=== PATIENT | female | born 1990 | race Caucasian/White ===

== ENCOUNTER → 2018-05-01 14:19 | Outpatient (CLI) | payer OTHER, SELFPAY ==
[2018-05-01 15:03] LABS: Absolute Lymphocyte Count 1.51 X10^3/ul (0.83-4.51); Basophil# 0.01 X10^3/uL; Basophil% 0.1 % (0-1); Eosinophil# 0.12 X10^3/uL; Eosinophils% 1.2 % (0-5); Hematocrit 37.3 % (37-47); Hemoglobin 13.1 g/dl (12.0-15.0); Lymphocyte # 1.51 X10^3/ul (4.0); Lymphocyte % 14.5 % (19-41); Mean Corp Hgb Conc 35.1 g/gl (32-36); Mean Corpuscular Hgb 31.4 pg (27.0-32.0); Mean Corpuscular Volume 89.4 fL (81-99); Mean Platelet Vol. 11.2 fl (6.2-12.0); Monocyte# 0.71 X10^3/uL; Monocyte% 6.8 % (0-10); Neutrophil # 8.04 X10^3/uL (2.7-7.7); Neutrophil % 77.3 % (47-70); Platelet Count 237 K/mm3 (150-450); RBC Distribution Width CV 12.4 % (11.6-14.6); RBC Distribution Width SD 40.1 fl (35.1-43.9); Red Blood Count 4.17 M/mm3 (4.2-5.4); White Blood Count 10.4 K/mm3 (4.4-11.0)
[2018-05-01 15:04] LABS: POSITIVE DIFFERENTIAL NO; POSITIVE MORPHOLOGY NO
[2018-05-01 16:16] LABS: HIV - WCH Non-Reactive (Nonreactive); Rubella IgG 143.5 IU/mL
[2018-05-03 08:12] LABS: HEPATITIS B SURFACE AG Negative (Negative)
[2018-05-04 02:33] LABS: Rapid Plasmin Reagin (RPR) NONREACTIVE (NONREACTIVE)
== END ==
PROVIDERS: Family Provider Family Medicine; PCP Family Medicine; Referring Provider Obstetrics & Gynecology; Visit Provider Obstetrics & Gynecology
DX: Z34.01 Encounter for supervision of normal first pregnancy, first trimester (principal)
CPT/HCPCS: 36415; 85025; 86592; 86703; 86762; 86900; 87340

== ENCOUNTER → 2018-09-03 | Outpatient (CLI) | payer OTHER, SELFPAY ==
[2016-08-12 11:48] VITALS: BMI 23.1
[2018-09-03 11:48] LABS: Color, Urine Yellow (Yellow); Glucose, Dipstick Normal (Normal); Hematocrit 33.8 % (37-47); Hemoglobin 11.9 g/dl (12.0-15.0); Ketone-Dipstick Negative (Negative); Leukocyte Esterase-Dipstick 100 /ul (Negative); Mean Corp Hgb Conc 35.2 g/gl (32-36); Mean Corpuscular Hgb 32.7 pg (27.0-32.0); Mean Corpuscular Volume 92.9 fL (81-99); Mean Platelet Vol. 11.5 fl (6.2-12.0); Nitrite-Dipstick Negative (Negative); Occult Blood-Urine Negative /ul (Negative); Platelet Count 167 K/mm3 (150-450); Protein-Dipstick 15 mg/dl (Negative); RBC Distribution Width CV 13.2 % (11.6-14.6); Red Blood Count 3.64 M/mm3 (4.2-5.4); Urine Bilirubin Dipstick Negative (Negative); Urine Clarity Sl. Cloudy (Clear); Urine Urobilinogen 1 mg/dl (Normal); White Blood Count 10.5 K/mm3 (4.4-11.0)
[2018-09-03 11:54] LABS: Scan Indicated on CBC? Y/N NO
[2018-09-03 12:03] LABS: Glucose Challenge Gest 1H 50g 108 mg/dL (70-140)
== END | disposition home or self-care (01) ==
LOC: LAB 09:35
PROVIDERS: Family Provider Family Medicine; PCP Family Medicine; Referring Provider Obstetrics & Gynecology; Visit Provider Obstetrics & Gynecology
DX: Z34.90 Encounter for supervision of normal pregnancy, unspecified, unspecified trimester (principal); Z3A.27 27 weeks gestation of pregnancy
CPT/HCPCS: 36415; 81002; 82950; 85027

== ENCOUNTER → 2018-09-04 | Outpatient (CLI) | payer OTHER, SELFPAY ==
[2016-08-12 11:48] VITALS: BMI 23.1
== END | disposition home or self-care (01) ==
LOC: LAB 11:59
PROVIDERS: Family Provider Family Medicine; PCP Family Medicine; Referring Provider Obstetrics & Gynecology; Visit Provider Obstetrics & Gynecology
DX: O26.892 Other specified pregnancy related conditions, second trimester (principal); R82.90 Unspecified abnormal findings in urine; Z3A.00 Weeks of gestation of pregnancy not specified
CPT/HCPCS: 87086; 87088

== ENCOUNTER 2018-11-18 14:45 | Inpatient (IN) | payer OTHER, SELFPAY ==
[2018-10-31 08:10] VITALS: BMI 22.8
[2018-11-18 15:08] VITALS: BMI 27.9
[2018-11-18] MEDS: Lactated Ringers 1,000 ML 50 ML IV ×3 (15:46→20:35)
[2018-11-18 15:49] LABS: Absolute Lymphocyte Count 1.36 X10^3/ul (0.83-4.51); Absolute Neutrophil Count 5.2 X10^3/uL (2.0-7.7); Basophil# 0.01 X10^3/uL; Basophil% 0.1 % (0-1); Eosinophils% 1.4 % (0-5); Hematocrit 32.4 % (37-47); Hemoglobin 10.9 g/dl (12.0-15.0); Lymphocyte # 1.36 X10^3/ul (4.0); Lymphocyte % 19.2 % (19-41); Mean Corp Hgb Conc 33.6 g/gl (32-36); Mean Corpuscular Hgb 29.7 pg (27.0-32.0); Mean Corpuscular Volume 88.3 fL (81-99); Mean Platelet Vol. 11.7 fl (6.2-12.0); Monocyte# 0.39 X10^3/uL; Monocyte% 5.5 % (0-10); Neutrophil # 5.21 X10^3/uL (2.7-7.7); Neutrophil % 73.7 % (47-70); Platelet Count 150 K/mm3 (150-450); RBC Distribution Width CV 12.9 % (11.6-14.6); RBC Distribution Width SD 41.9 fl (35.1-43.9); Red Blood Count 3.67 M/mm3 (4.2-5.4); White Blood Count 7.1 K/mm3 (4.4-11.0)
[2018-11-18 15:50] LABS: POSITIVE COUNT NO; POSITIVE DIFFERENTIAL NO; POSITIVE MORPHOLOGY NO
--- NOTE | 2018-11-18 15:53 | PCM.HP.OB ---
- Problem List (1) 37 weeks gestation of Status: Acute (2) SROM (spontaneous rupture of membranes) Status: Acute History Date of Admission: 11/18/18 Final TY: 12/03/18 Final TY Source: US <20 weeks Gestational age: 37 Weeks and 6 Days History of this : This is a 28 year-old, G 1, P 0, at 37 weeks gestational age who presents with SROM for clear fluid. Starting to feel contractions. No other complaints at this time. Medical History: Medical History (Last Reviewed 11/14/18 @ 09:36 by Stefanie Sheppard) Environmental allergies Z91.09 and not yet delivered Z34.90 Surgical History: Surgical History (Last Reviewed 11/14/18 @ 09:36 by Stefanie Sheppard) History of bunionectomy Z98.890 Allergies Penicillins [PCN] Allergy (Verified 08/12/16 11:44) Hives Home Medications: Home Medications vitamin,calcium,vkcfjxfg-wevk-zkfpy acid tablet 1 tab PO DAILY 10/02/18 Smoking Status: Never smoker Number of Fetus(es): 1 Heart Tracin/mod esther/+accels/no decels TOCO Analysis: Irritability with occasional ctx's History Past Pregnancies: Past Pregnancies Delivery Date Name GA/Weeks Outcome Route Weight Gender Labor Length Anesthesia Delivery Location Provider FOB Labs: GBS positive, resistant to clinda 1 hr GTT 108 Hgb 11.9 UDS neg Hep B neg RPR NR RI HIV NR A positive GC/CT neg Expected Delivery Method: Spontaneous Vaginal Review of Systems Gynecological: Reports: - - +SROM and ctx's Physical Exam General: Alert, No apparent distress HEENT: Atraumatic Lungs: - - No increased resp effort Abdomen: Gravid Extremities:: No edema Neurological: Neuro grossly intact Estimated gestational size: Appropriate for gestational size Presentation: Cephalic Cervix Dilation (cm): 4 - Per RN Station: -2 Effacement (%): 70 Assessment/Plan All Active Problems (Last Reviewed 11/14/18 @ 09:36 by Stefanie Sheppard) 37 weeks gestation of (Acute) SROM (spontaneous rupture of membranes) (Acute) Segmental and somatic dysfunction of sacral region (Acute) Segmental and somatic dysfunction of pelvic region (Acute) Segmental and somatic dysfunction of lumbar region (Acute) Segmental dysfunction of thoracic region (Acute) This is a 28 year-old, G1, P0, at 37 weeks gestational age who presents with SROM. Cvx 4 cm dilated. - Admit for routine intrapartum care - GBS positive, PCN allergy, resistant to Clinda, will start Vanc - Will start pitocin for augmentation if needed - Epidural prn
[2018-11-18] MEDS: Vancomycin IV 1,000 MG/200 ML BAG 200 MG IV (16:37)
[2018-11-18] MEDS: 0.9% Saline Lock 10 ML Syringe IV (17:43)
[2018-11-18] MEDS: Ondansetron 4 MG/2 ML Vial IV (20:01)
[2018-11-18] MEDS: fentaNYL-bupivacaine (epidural) 100 ML BAG EPIDURAL (20:44)
[2018-11-19] MEDS: fentaNYL-bupivacaine (epidural) 100 ML BAG EPIDURAL (01:58)
[2018-11-19] MEDS: Lactated Ringers 1,000 ML 50 ML IV (02:29)
[2018-11-19] MEDS: Oxytocin 30 units/NS 500 ml 30 UNITS/500 ML IV.SOLN 334 UNITS IV (03:45)
--- NOTE | 2018-11-19 04:05 | PCM.OPRPT ---
Problem List (1) 37 weeks gestation of Status: Acute (2) SROM (spontaneous rupture of membranes) Status: Acute Report of Operation Date of Procedure: 11/19/18 Pre-Operative Diagnosis: 37w6d SROM, labor Post-Operative Diagnosis: As above Surgery/Procedure Performed:: Description of Surgical Findings:: Clear fluid. VFI in OA position. Normal appearing placenta with a 3 vessel cord Type of Anesthesia:: Epidural Special Medications: None Specimen's removed: Placenta Drains: None Estimated Blood Loss (mL): 300 Description of Procedure: Patient complete and pushing. Head delivered OA, followed by shoulders and body without any force or delay. VFI delivered atraumatically and placed on maternal abdomen. Cord was clamped and cut after 60 sec delay by FOB. Placenta delivered intact with fundal massage. Placenta was normal appearing with a 3 vessel cord. Uterus explored x 1. Fundus firm and bleeding hemostatic. Right 2nd degree tear repaired in usual fashion. Grafts/Implants Used: None - Complications None - Admit VTE Documentation VTE Present on Admission: No VTE Pharm Prophylaxis ordered?: No Vaginal Delivery Maternal Presentation: Active Labor, Spontaneous Rupture of Membranes Amniotic Membrane Rupture Type: Spontaneous Amniotic Fluid Description: Clear Final TY: 12/03/18 Gestational age: 38 Weeks and 0 Days Date of Procedure: 11/19/18 Surgery/ Procedure Performed: Spontaneous Vaginal Delivery Type of Anesthesia: Epidural Presentation: Vertex Placental Delivery Description: Expressed Cord Vessel Description: 3 Vessels Cord Entanglement: None A gender: Female (1 minute): 8 (5 minute): 9 Episiotomy Description: None Laceration: 2nd degree Medications given after delivery: IV Pitocin Complications: None
[2018-11-19] MEDS: Oxytocin 30 units/NS 500 ml 30 UNITS/500 ML IV.SOLN 167 UNITS IV (04:15)
[2018-11-19 05:55] VITALS: BP 113/55; PULSE 97; RESP 18; TEMP 36.7; O2SAT 97
[2018-11-19] MEDS: 0.9% Saline Lock 10 ML Syringe IV (05:55)
[2018-11-19 08:15] VITALS: BP 108/61; PULSE 107; RESP 18; TEMP 36.9; O2SAT 96
[2018-11-19] MEDS: Senna/Docusate Sodium 1 Tablet PO (08:23)
[2018-11-19] MEDS: Ibuprofen 600 MG Tablet PO ×3 (08:23→20:10)
[2018-11-19 11:45] VITALS: BP 107/65; PULSE 76; RESP 18; TEMP 36.2
[2018-11-19] MEDS: Acetaminophen 500 MG Tablet 1000 MG PO ×2 (12:03→21:45)
--- NOTE | 2018-11-19 12:25 | NURSING ---
Hathaway maintained due to labial edema. will reassess in 2-3 hours.
--- NOTE | 2018-11-19 12:30 | NURSING ---
de souza maintained. labial edema slightly lessened. will continue ice packs and anti inflammatories. reassess in 2-3 hours.
--- NOTE | 2018-11-19 12:32 | NURSING ---
de souza maintained at this time due to labial edema
[2018-11-19 16:00] VITALS: BP 100/62; PULSE 72; RESP 18; TEMP 36.6
[2018-11-19 20:15] VITALS: BP 109/67; PULSE 75; RESP 16; TEMP 36.6
[2018-11-19 23:40] VITALS: BP 111/59; PULSE 79; RESP 16; TEMP 36.2
[2018-11-20] MEDS: Ibuprofen 600 MG Tablet PO ×3 (02:36→19:13)
[2018-11-20 04:00] VITALS: BP 117/56; PULSE 72; RESP 16
[2018-11-20] MEDS: Acetaminophen 500 MG Tablet 1000 MG PO ×2 (07:32→23:11)
[2018-11-20 07:40] VITALS: BP 110/69; PULSE 70; RESP 16; TEMP 36.7; O2SAT 98
--- NOTE | 2018-11-20 08:17 | PCM.PN.OB ---
Patient Problems: Active and Suspected Problems (Last Reviewed 11/14/18 @ 09:36 by Stefanie Sheppard) 37 weeks gestation of (Acute) SROM (spontaneous rupture of membranes) (Acute) Subjective: No complaints - Physical Exam General: Alert, Oriented x3 Abdomen: Soft, Non Tender, Non-Distended - ff mid & below umb Extremities: No Calf Tenderness Vital Signs Temp Pulse Resp BP Pulse Ox 98.0 F 70 16 110/69 98 11/20/18 07:40 11/20/18 07:40 11/20/18 07:40 11/20/18 07:40 11/20/18 07:40 Oxygen Delivery Method Room Air Weight: 173 lb Body Mass Index (BMI) 27.9 Intake and Output for Last 24 Hours 11/18/18 11/19/18 11/20/18 23:59 23:59 23:59 Intake Total 1464 / 1464 1545 / 1545 Output Total 1950 / 1950 Balance 1464 / 1464 -405 / -405 Medical Necessity - Tobacco Use Smoking Status: Never smoker Assessment/Plan All Active Problems (Last Reviewed 11/14/18 @ 09:36 by Stefanie Sheppard) 37 weeks gestation of (Acute) SROM (spontaneous rupture of membranes) (Acute) Segmental and somatic dysfunction of sacral region (Acute) Segmental and somatic dysfunction of pelvic region (Acute) Segmental and somatic dysfunction of lumbar region (Acute) Segmental dysfunction of thoracic region (Acute) PPD#1 Routine care
[2018-11-20 12:00] VITALS: BP 111/67; PULSE 84; RESP 16; TEMP 36.7; O2SAT 98
[2018-11-20 20:47] VITALS: BP 113/63; PULSE 77; RESP 16; TEMP 36.9; O2SAT 97
[2018-11-21 02:47] VITALS: BP 113/69; PULSE 70; RESP 16; TEMP 36.9; O2SAT 98
--- NOTE | 2018-11-21 07:43 | PCM.PN.OB ---
Patient Problems: Active and Suspected Problems (Last Reviewed 11/14/18 @ 09:36 by Stefanie Sheppard) 37 weeks gestation of (Acute) SROM (spontaneous rupture of membranes) (Acute) Subjective: Pt doing well and has no complaints. Lochia normal. without complaints. Ambulating and voiding without difficulty. Rosy reg diet without N/V. - Physical Exam General: Alert, No apparent distress HEENT: Atraumatic Lungs: - - No increased resp effort Abdomen: Soft, Non Tender, - - FF@U-2 Extremities: No edema Skin: No rashes Neurological: Neuro grossly intact Psych/Mental Status: Normal Affect, Appropriate Vital Signs Temp Pulse Resp BP Pulse Ox 98.5 F 70 16 113/69 98 11/21/18 02:47 11/21/18 02:47 11/21/18 02:47 11/21/18 02:47 11/21/18 02:47 Oxygen Delivery Method Room Air Weight: 173 lb Body Mass Index (BMI) 27.9 Intake and Output for Last 24 Hours 11/19/18 11/20/18 11/21/18 23:59 23:59 23:59 Intake Total 1545 / 1545 Output Total 1950 / 1950 Balance -405 / -405 Medical Necessity - Tobacco Use Smoking Status: Never smoker Assessment/Plan All Active Problems (Last Reviewed 11/14/18 @ 09:36 by Stefanie Sheppard) 37 weeks gestation of (Acute) SROM (spontaneous rupture of membranes) (Acute) Segmental and somatic dysfunction of sacral region (Acute) Segmental and somatic dysfunction of pelvic region (Acute) Segmental and somatic dysfunction of lumbar region (Acute) Segmental dysfunction of thoracic region (Acute) PPD#2 s/p - Doing well and feels ready to go home - D/c home today
--- NOTE | 2018-11-21 07:44 | DCINST_ITS ---
Discharge Diet: No Restrictions Discharge Activity: Return to Normal Activity, May Shower, May Take a Tub Bath May resume sexual activity in: 6 weeks Weight Bearing Status: Full weight bearing Lifting Restrictions: None Call your doctor if you observe: Fever of 101 or Higher, Inability to urinate, Inability to have a bowel movement, Using more than one pad per hour, Shortness of breath, Dizziness, Fainting spells, Chest pain, Increased palpitations (irregular heartbeat), Calf discomfort, Uncontrolled pain Cleanse incision/area with: Soap & Water Instructions: After a Vaginal Additional Instructions: If you experience any of the following, contact your healthcare provider. * Bleeding that soaks a pad every hour for 2 hours * Fever 100.4 or higher * Unrelieved incision or abdominal pain * Swelling, redness, discharge or bleeding from your incision or episiotomy site * Your incision begins to separate * Problems urinating (including inability to urinate or burning while urinating). * Visual changes * Severe headache * Flu-like symptoms * Pain or redness in one of both of your breasts * Pain, warmth, tenderness or swelling in your legs, especially the calf area * Frequent nausea and vomiting * Symptoms of depression or anxiety If you experience any of the following, call 911 or go to the nearest Emergency Room. * Chest pain * Problems breathing * Seizure activity * Partial or complete paralysis of a body part, slurred speech, weakness or drooping of the face, or a sudden inability to walk or hold your balance Allergies/Adverse Reactions: Allergies Penicillins [PCN] Allergy (Verified 08/12/16 11:44) Hives Medications to take at Discharge vitamin,calcium,rypabfzf-udbr-lnojq acid tablet 1 tab PO DAILY 10/02/18 When: 6 week visit. You may also schedule a 1 week appointment if you desire Primary Care Physician: Aftab James MD [Primary Care Provider] - Test Results: Test results from this visit will be discussed in further detail at your follow- up appointment, if applicable. Proposed Discharge Date: 11/21/18
--- NOTE | 2018-11-21 07:44 | PCM.DCVAG ---
Discharge Diet: No Restrictions Discharge Activity: Return to Normal Activity, May Shower, May Take a Tub Bath May resume sexual activity in: 6 weeks Weight Bearing Status: Full weight bearing Lifting Restrictions: None Call your doctor if you observe: Fever of 101 or Higher, Inability to urinate, Inability to have a bowel movement, Using more than one pad per hour, Shortness of breath, Dizziness, Fainting spells, Chest pain, Increased palpitations (irregular heartbeat), Calf discomfort, Uncontrolled pain Cleanse incision/area with: Soap & Water Instructions: After a Vaginal Additional Instructions: If you experience any of the following, contact your healthcare provider. Bleeding that soaks a pad every hour for 2 hours Fever 100.4 or higher Unrelieved incision or abdominal pain Swelling, redness, discharge or bleeding from your incision or episiotomy site Your incision begins to separate Problems urinating (including inability to urinate or burning while urinating). Visual changes Severe headache Flu-like symptoms Pain or redness in one of both of your breasts Pain, warmth, tenderness or swelling in your legs, especially the calf area Frequent nausea and vomiting Symptoms of depression or anxiety If you experience any of the following, call 911 or go to the nearest Emergency Room. Chest pain Problems breathing Seizure activity Partial or complete paralysis of a body part, slurred speech, weakness or drooping of the face, or a sudden inability to walk or hold your balance Allergies/Adverse Reactions: Allergies Penicillins [PCN] Allergy (Verified 08/12/16 11:44) Hives Medications to take at Discharge vitamin,calcium,jhjccjrm-woyo-deimp acid tablet 1 tab PO DAILY 10/02/18 When: 6 week visit. You may also schedule a 1 week appointment if you desire Primary Care Physician: Aftab James MD [Primary Care Provider] - Test Results: Test results from this visit will be discussed in further detail at your follow-up appointment, if applicable. Proposed Discharge Date: 11/21/18
--- NOTE | 2018-11-21 08:10 | PN.OBGYN_ITS ---
Patient Problems: Active and Suspected Problems (Last Reviewed 11/14/18 @ 09:36 by Stefanie Sheppard) 37 weeks gestation of (Acute) SROM (spontaneous rupture of membranes) (Acute) Subjective: Pain well controlled. Average lochia. Not had a bowel movement yet. Breast- feeding is going well. - Physical Exam General: Alert, Cooperative, No apparent distress Vital Signs Temp Pulse Resp BP Pulse Ox 98.5 F 70 16 113/69 98 11/21/18 02:47 11/21/18 02:47 11/21/18 02:47 11/21/18 02:47 11/21/18 02:47 Oxygen Delivery Method Room Air Weight: 78.471 kg Body Mass Index (BMI) 27.9 Intake and Output for Last 24 Hours 11/19/18 11/20/18 11/21/18 23:59 23:59 23:59 Intake Total 1545 / 1545 Output Total 1950 / 1950 Balance -405 / -405 Medical Necessity - Tobacco Use Smoking Status: Never smoker Assessment/Plan All Active Problems (Last Reviewed 11/14/18 @ 09:36 by Stefanie Sheppard) 37 weeks gestation of (Acute) SROM (spontaneous rupture of membranes) (Acute) Segmental and somatic dysfunction of sacral region (Acute) Segmental and somatic dysfunction of pelvic region (Acute) Segmental and somatic dysfunction of lumbar region (Acute) Segmental dysfunction of thoracic region (Acute) day #2 status post spontaneous vaginal delivery. Patient and are doing well. Breast-feeding is going well. Discharged home with routine instructions. Patient declines need for any prescriptions.
[2018-11-21 08:56] VITALS: BP 116/76; PULSE 64; RESP 16; TEMP 36.4
[2018-11-21] MEDS: Ibuprofen 600 MG Tablet PO (09:11)
== END 2018-11-21 11:00 | disposition home or self-care (01) | DRG 806 ==
PROVIDERS: Admitting Provider Obstetrics & Gynecology; Family Provider Family Medicine; PCP Family Medicine; Visit Provider Obstetrics & Gynecology
DX: O60.14X0 Preterm labor third trimester with preterm delivery third trimester, not applicable or unspecified (principal); O98.82 Other maternal infectious and parasitic diseases complicating childbirth; Z37.0 Single live birth; B95.1 Streptococcus, group B, as the cause of diseases classified elsewhere; O70.9 Perineal laceration during delivery, unspecified; Z3A.37 37 weeks gestation of pregnancy
CPT/HCPCS: 59025; 59050; 85025; 86850; 86900; 99218; J7120; A4216; G0378; J2405

== ENCOUNTER 2019-02-08 09:15 | Outpatient (RCR) | payer OTHER, SELFPAY ==
[2016-08-12 11:48] VITALS: BMI 23.1
--- NOTE | 2018-10-01 16:42 | MASS.EVAL_ITS ---
Massage Therapy Evaluation: Initial Evaluation Date: 10/01/2018 SUBJECTIVE: Kiersten is a 27 year old female who was referred to the [facility] facility for a massotherapy evaluation by Dr. James with the diagnosis of back pain. Kiersten presents today with the symptoms of tension and pain in her neck, mid back and low back, patient is 31 weeks . Humberto reports having a upper back pain while trying to sleep. She also states that she if experiencing sciatic pain. OBJECTIVE: Upon observation Kiersten has some posture issues with her head and shoulders forward from the neutral position in sitting and standing. After examination and palpation I found Kiersten to have high muscle tension with tenderness and myofascial restrictions in her sub occipitals, levator scapulae, trapezius, rhomboids, scalenes, and thoracic paraspinals. Her QL?s, lumbar paraspinals, piriformis, glute medius and minimus all were very tight with fascial restr ictions, tender points and trigger points. The first treatment consisted of a one hour massage to her upper body with myofascial release, muscle stripping, trigger point compression techniques, and cervical manual traction. ASSESSMENT: I feel that Humberto is a good candidate for massotherapy at this time. She had a favorable response to the first treatment with reduction in her muscle aches, pain and tension. She also had improvement in her cervical flexibility and low back flexibility. PLAN: The plan of care was reviewed with the patient. The patient is to be seen on an as needed basis for a total of ten sessions with the recommendation of once every month for a one hour treatment. Melba Francis LMT
--- NOTE | 2019-05-06 19:19 | MASS.DISCH ---
Massage Therapy Discharge Summary: Discharge Date: 05/06/2019 Genny was seen for a massotherapy evaluation on 10/01/2018 with the diagnosis of back pain from work and . She was treated with four sessions of massage therapy consisting of moderate to deep pressure soft tissue techniques, myofascial release and trigger point compression to her cervical, thoracic, lower back, and upper extremities. Kiersten responded well to the therapy by reporting decreased tension and pain throughout her head, neck, shoulders, lower back and hips. Her goals for therapy were met throughout the treatment sessions. At this time this patient is being discharged from our care at [facility] facility.
== END 2019-02-08 19:00 | disposition home or self-care (01) ==
LOC: MASS 09:15
PROVIDERS: Family Provider Family Medicine; PCP Family Medicine; Visit Provider Family Medicine
DX: M54.9 Dorsalgia, unspecified (principal)
CPT/HCPCS: 97124

== ENCOUNTER 2020-04-28 23:00 | Inpatient (IN) | payer OTHER, SELFPAY ==
[2019-05-24 12:40] VITALS: BMI 27.9
[2020-04-28 22:42] VITALS: BP 118/74; PULSE 96; TEMP 37.1; O2SAT 97
[2020-04-28 22:59] VITALS: BMI 29.8
[2020-04-28] MEDS: Lactated Ringers 500 ML 999 ML IV (23:19)
[2020-04-28] MEDS: Cefazolin 2 GM in 0.9% Normal Saline 100 ML IV (23:19)
[2020-04-28 23:30] LABS: Absolute Lymphocyte Count 1.71 X10^3/uL (0.83-4.51); Absolute Neutrophil Count 10.6 X10^3/uL (2.0-7.7); Basophil# 0.02 X10^3/uL; Basophil% 0.2 % (0-1); Eosinophil# 0.07 X10^3/uL; Eosinophils% 0.5 % (0-5); Hematocrit 35.1 % (37-47); Lymphocyte # 1.71 X10^3/ul (4.0); Lymphocyte % 12.8 % (19-41); Mean Corp Hgb Conc 31.3 g/dL (32-36); Mean Corpuscular Hgb 26.8 pg (27.0-32.0); Mean Corpuscular Volume 85.6 fL (81-99); Mean Platelet Vol. 11.2 fl (6.2-12.0); NRBC Flagged by Analyzer 0 % (0-5); Neutrophil # 10.63 X10^3/uL (2.7-7.7); Neutrophil % 79.9 % (47-70); Platelet Count 213 K/mm3 (150-450); RBC Distribution Width CV 13.6 % (11.6-14.6); RBC Distribution Width SD 42.3 fl (35.1-43.9); White Blood Count 13.3 K/mm3 (4.4-11.0)
[2020-04-28] MEDS: Lactated Ringers 1,000 ML 50 ML IV (23:50)
[2020-04-29] VITALS (39 sets, daily range): BP systolic 102–131; BP diastolic 55–79; PULSE 82–109; RESP 16–18; TEMP 36.2–37.3; O2SAT 82–100
[2020-04-29] MEDS: fentaNYL-bupivacaine (epidural) 100 ML BAG EPIDURAL ×2 (02:25→07:19)
[2020-04-29] MEDS: Mag Hydrox/Al Hydrox/Simeth 30 ML UDC PO (04:15)
[2020-04-29] MEDS: Lactated Ringers 1,000 ML 200 ML IV (05:52)
--- NOTE | 2020-04-29 07:15 | PCM.HP.OB ---
History Date of Admission: 11/18/18 Final TY: 05/08/20 Final TY Source: US <20 weeks Gestational age: 38 Weeks and 5 Days History of this : This is a 29 year-old, G 2, P 1, at 38 weeks gestational age. Patient presents with contractions. She had a history of COVID-19 earlier in the . Had any gross vaginal bleeding or leaking of fluid. When she arrived to labor and delivery she was found to be in early labor. Medical History: Medical History (Last Reviewed 05/24/19 @ 12:40 by Ulisses Fong) Environmental allergies Z91.09 and not yet delivered Z34.90 Surgical History: Surgical History (Last Reviewed 05/24/19 @ 12:40 by Ulisses Fong) History of bunionectomy Z98.890 Allergies Penicillins [PCN] Allergy (Verified 04/28/20 23:07) Hives Home Medications: Home Medications prenat.vits,emely,mvo-jcff-dboge 1 tab PO DAILY 10/02/18 Smoking Status: Never smoker Alcohol: None Number of Fetus(es): 1 NST - FHR Rate Baby A Baseline: normal Variability:: Moderate History Past Pregnancies: Past Pregnancies Delivery Date Name GA/ Weeks Outcome Route Wt Infant Sex Labor Length Anesthesia Delivery Location Provider FOB Expected Delivery Method: Spontaneous Vaginal Review of Systems Constitutional: Denies: Chills, Fever Eyes: Denies: Blurred vision Cardiovascular: Denies: Chest Pain Respiratory: Denies: Cough, Shortness of Breath Genitourinary: Denies: Dysuria, Frequency Gynecological: Denies: Vaginal itching Neurological: Denies: Blurred vision, Change in Speech, Slurred speech, Confusion Hematologic/ Lymphatic: Denies: Anemia, Easy Bruising, Easy Bleeding, Hx of blood clot Physical Exam Vitals: Vital Signs Temp Pulse BP Pulse Ox 98.2 F 98 103/57 L 98 04/29/20 06:11 04/29/20 06:13 04/29/20 06:11 04/29/20 06:13 General: Alert, Cooperative, No apparent distress Cardiovascular: Regular rate Lungs: Normal air movement Abdomen: Soft, Non Tender, Non-Distended, Gravid, Appropriate for Gestational Age Extremities:: No edema Neurological: Cranial nerves II-XII grossly intact, Neuro grossly intact [employer]: Normal external genitalia Estimated gestational size: Appropriate for gestational size Presentation: Cephalic Assessment/Plan All Active Problems (Last Reviewed 05/24/19 @ 12:40 by Ulisses Fong) 37 weeks gestation of (Acute) SROM (spontaneous rupture of membranes) (Acute) Sinusitis, acute (Acute) Segmental and somatic dysfunction of sacral region (Acute) Segmental and somatic dysfunction of pelvic region (Acute) Segmental and somatic dysfunction of lumbar region (Acute) Segmental dysfunction of thoracic region (Acute) This is a 29 year-old, 2 para 1 at 38-5/7 weeks gestation with labor. Mated weight is less than 4000 g clinically and pelvis is clinically adequate to expect vaginal delivery. May have epidural as needed for pain control. Pitocin augmentation as needed. Group B strep prophylaxis initiated.
[2020-04-29] MEDS: Cefazolin 1 GM/50 ML BAG IV (07:18)
[2020-04-29] MEDS: Oxytocin 30 units/NS 500 ml 30 UNITS/500 ML IV.SOLN IV (07:28)
[2020-04-29] MEDS: Oxytocin 30 units/NS 500 ml 30 UNITS/500 ML IV.SOLN 334 UNITS IV (09:33)
--- NOTE | 2020-04-29 09:43 | PCM.OPRPT ---
Vaginal Delivery Maternal Presentation: Active Labor Amniotic Membrane Rupture Type: Artificial Amniotic Fluid Description: Clear Final TY: 05/08/20 Final TY Source: US <20 weeks Gestational age: 38 Weeks and 5 Days Date of Procedure: 04/29/20 Pre-Operative Diagnosis: labor Post-Operative Diagnosis: same Surgery/ Procedure Performed: Spontaneous Vaginal Delivery Type of Anesthesia: Epidural Description of Procedure: A vigorous female infant was delivered DIMITRY over first-degree perineal laceration. The remainder the was delivered with maternal pushing and gentle traction only in less than 15 seconds. The Pitocin infusion was initiated for active management of the third stage. The cord was clamped and cut after 1 minute. The infant was attended to by the waiting nursing staff. The placenta was delivered spontaneously and intact. The cervix and vagina were intact. First-degree perineal laceration was repaired with 3-0 Vicryl suture in a running standard fashion. Sponge and needle counts were correct. A vaginal sweep was completed by me. Delivery time 0931 patient started on ASA 325 mg daily due to h/o COVID 19 in Presentation: DIMITRY Placental Delivery Description: Spontaneous Placenta Disposition: [facility] Cord Vessel Description: 3 Vessels Cord Entanglement: None Drain: Hathaway to straight drain Estimated Blood Loss: 300 Infant A gender: Female - Ashley Episiotomy Description: None Laceration: 1st degree - perineal Medications given after delivery: IV Pitocin Complications: None
[2020-04-29] MEDS: Aspirin 325 MG Tablet PO (11:45)
[2020-04-29] MEDS: Ibuprofen 600 MG Tablet PO ×2 (11:49→19:44)
[2020-04-29] MEDS: 0.9% Saline Lock 10 ML Syringe IV (13:58)
[2020-04-29] MEDS: Acetaminophen 500 MG Tablet 1000 MG PO (22:20)
[2020-04-30 00:38] VITALS: BP 111/67; PULSE 90; RESP 18; TEMP 35.9
[2020-04-30] MEDS: Ibuprofen 600 MG Tablet PO ×2 (00:45→07:38)
[2020-04-30 04:30] VITALS: BP 109/62; PULSE 81; RESP 18; TEMP 36.2
[2020-04-30 04:32] VITALS: BP 109/62; PULSE 81; TEMP 36.2
[2020-04-30] MEDS: Aspirin 325 MG Tablet PO (07:38)
[2020-04-30 09:00] VITALS: BP 119/68; PULSE 77; RESP 16; TEMP 36.7
[2020-04-30 09:01] VITALS: BP 119/68; PULSE 77
[2020-04-30 09:03] VITALS: TEMP 36.7
--- NOTE | 2020-04-30 09:51 | PCM.PN.OB ---
Subjective: pain well controlled, average lochia - Physical Exam Vitals/I&O's: Vital Signs Temp Pulse Resp BP Pulse Ox 98.1 F 77 16 119/68 96 04/30/20 09:03 04/30/20 09:01 04/30/20 09:00 04/30/20 09:01 04/29/20 19:45 Oxygen Delivery Method Room Air Weight: 83.971 kg Body Mass Index (BMI) 29.8 Intake and Output for Last 24 Hours 04/28/20 04/29/20 04/30/20 23:59 23:59 23:59 Intake Total 500 / 500 2308.23 / 2308.23 Output Total 1350 / 1350 Balance 500 / 500 958.23 / 958.23 General: Alert, Cooperative, No apparent distress Current Medications Acetaminophen (Acetaminophen 500 Mg Tablet) 1,000 mg PO Q8H PRN PRN PRN Reason: Pain Score 1-3 Last Admin: 04/29/20 22:20 Dose: 1,000 mg Documented by: Aspirin (Aspirin 325 Mg Tablet) 325 mg PO DAILY@0800 IAN Last Admin: 04/30/20 07:38 Dose: 325 mg Documented by: Bisacodyl (Bisacodyl 10 Mg Suppository) 10 mg RECTAL UD PRN PRN Reason: If no BM Dibucaine (Dibucaine 30 Gm Tube) 1 applic TOPICAL TID PRN PRN; Protocol PRN Reason: Discomfort Hydrocortisone (Hydrocortisone 2.5% Crm) 1 applic TOPICAL TID PRN PRN; Protocol PRN Reason: Discomfort Ibuprofen (Ibuprofen 600 Mg Tablet) 600 mg PO Q6H PRN PRN PRN Reason: Pain Score 1-3 Last Admin: 04/30/20 07:38 Dose: 600 mg Documented by: Methylergonovine Maleate (Methylergonovine 0.2 Mg/Ml Ampul) 0.2 mg IM X1 PRN PRN Reason: Excess bleeding/uterine atony Ondansetron HCl (Ondansetron 4 Mg/2 Ml Vial) 4 mg IV Q4H PRN PRN PRN Reason: Nausea Prochlorperazine Edisylate (Prochlorperazine 10 Mg/2 Ml Vial) 10 mg IV Q6H PRN PRN PRN Reason: NAUSEA/VOMITING Senna/Docusate Sodium (Senna/Docusate Sodium 1 Tablet) 1 - 2 tablet PO DAILY PRN PRN PRN Reason: Constipation Simethicone (Simethicone 80 Mg Tablet) 80 mg PO PCHS PRN PRN Reason: Indigestion/Stomach pain Sodium Chloride (0.9% Saline Lock 10 Ml Syringe) 5 - 15 ml IV UD PRN PRN Reason: SALINE FLUSH Last Admin: 04/29/20 13:58 Dose: 10 ml Documented by: Medical Necessity - Tobacco Use Smoking Status: Never smoker Assessment/Plan All Active Problems (Last Reviewed 05/24/19 @ 12:40 by Ulisses Fong) 37 weeks gestation of (Acute) SROM (spontaneous rupture of membranes) (Acute) Sinusitis, acute (Acute) Segmental and somatic dysfunction of sacral region (Acute) Segmental and somatic dysfunction of pelvic region (Acute) Segmental and somatic dysfunction of lumbar region (Acute) Segmental dysfunction of thoracic region (Acute) PPD#2 doing well routine care and doing well d/c home today ASA prophylaxis for 4 weeks due to h/o recent COVID 19+
--- NOTE | 2020-04-30 09:53 | DCINST_ITS ---
Discharge Diet: No Restrictions Discharge Activity: Return to Normal Activity, May not drive while taking narcotic pain medications., May Shower May resume sexual activity in: 4-6 weeks Additional Activity Instructions:: Nothing in the vagina for 4-6 weeks. You may return to work/school in 6 weeks. Call your doctor if your incision/area has: Continuous Slow Oozing, Sudden Increased Bleeding, Increased Pain/ Swelling, Increased Redness, Foul Smelling Discharge Additional Instructions: If you experience any of the following, contact your healthcare provider. * Bleeding that soaks a pad every hour for 2 hours * Fever 100.4 or higher * Unrelieved incision or abdominal pain * Swelling, redness, discharge or bleeding from your incision or episiotomy site * Your incision begins to separate * Problems urinating (including inability to urinate or burning while urinating). * Visual changes * Severe headache * Flu-like symptoms * Pain or redness in one of both of your breasts * Pain, warmth, tenderness or swelling in your legs, especially the calf area * Frequent nausea and vomiting * Symptoms of depression or anxiety If you experience any of the following, call 911 or go to the nearest Emergency Room. * Chest pain * Problems breathing * Seizure activity * Partial or complete paralysis of a body part, slurred speech, weakness or drooping of the face, or a sudden inability to walk or hold your balance Allergies/Adverse Reactions: Allergies Penicillins [PCN] Allergy (Verified 04/28/20 23:07) Hives Medications to take at Discharge prenat.vits,emely,ism-qonv-eipwt 1 tab PO DAILY 10/02/18 Aspirin 325 mg PO DAILY@0800 tablet 04/30/20 Please Follow Up With: Emily Rios MD - [phone] When: Call to make an appointment with your doctor in 6 weeks. If you had elevated Blood Pressure or 4th degree laceration you will need to be seen in 2 weeks. Primary Care Physician: Aftab James MD [Primary Care Provider] - Test Results: Test results from this visit will be discussed in further detail at your follow- up appointment, if applicable.
--- NOTE | 2020-04-30 09:53 | PCM.DCVAG ---
Discharge Diet: No Restrictions Discharge Activity: Return to Normal Activity, May not drive while taking narcotic pain medications., May Shower May resume sexual activity in: 4-6 weeks Additional Activity Instructions:: Nothing in the vagina for 4-6 weeks. You may return to work/school in 6 weeks. Call your doctor if your incision/area has: Continuous Slow Oozing, Sudden Increased Bleeding, Increased Pain/ Swelling, Increased Redness, Foul Smelling Discharge Additional Instructions: If you experience any of the following, contact your healthcare provider. Bleeding that soaks a pad every hour for 2 hours Fever 100.4 or higher Unrelieved incision or abdominal pain Swelling, redness, discharge or bleeding from your incision or episiotomy site Your incision begins to separate Problems urinating (including inability to urinate or burning while urinating). Visual changes Severe headache Flu-like symptoms Pain or redness in one of both of your breasts Pain, warmth, tenderness or swelling in your legs, especially the calf area Frequent nausea and vomiting Symptoms of depression or anxiety If you experience any of the following, call 911 or go to the nearest Emergency Room. Chest pain Problems breathing Seizure activity Partial or complete paralysis of a body part, slurred speech, weakness or drooping of the face, or a sudden inability to walk or hold your balance Allergies/Adverse Reactions: Allergies Penicillins [PCN] Allergy (Verified 04/28/20 23:07) Hives Medications to take at Discharge prenat.vits,emely,uqi-lbcp-pwyqu 1 tab PO DAILY 10/02/18 Aspirin 325 mg PO DAILY@0800 tablet 04/30/20 Please Follow Up With: Emily Rios MD - [phone] When: Call to make an appointment with your doctor in 6 weeks. If you had elevated Blood Pressure or 4th degree laceration you will need to be seen in 2 weeks. Primary Care Physician: Aftab James MD [Primary Care Provider] - Test Results: Test results from this visit will be discussed in further detail at your follow-up appointment, if applicable.
== END 2020-04-30 11:25 | disposition home or self-care (01) | DRG 807 ==
LOC: WPOUT 23:05 → WP 23:07
PROVIDERS: Admitting Provider Obstetrics & Gynecology; PCP Family Medicine; Visit Provider Obstetrics & Gynecology
DX: O70.0 First degree perineal laceration during delivery (principal); Z37.0 Single live birth; Z3A.38 38 weeks gestation of pregnancy
CPT/HCPCS: 59025; 59050; 85025; 86850; 86900; 86901; 99218; J7120; A4216; G0378

== ENCOUNTER → 2021-11-10 | Outpatient (CLI) | payer OTHER, SELFPAY ==
[2021-11-10 09:06] LABS: Vitamin D,25 Hydroxy 32.8 ng/mL
[2021-11-10 09:10] LABS: Anion Gap 3 (5-15); BUN 16 mg/dL (7-18); Calcium,Total 8.9 mg/dL (8.5-10.1); Chloride 108 mmol/L (98-107); Cholesterol 135 mg/dL (200); Creatinine, Serum 0.73 mg/dL (0.55-1.02); EST Glomerular Filtration Rate 99 mL/min (>60); Est Glom Filt Rate - Afr Amer 120 mL/min (>60); Glucose 88 mg/dL (74-106); High Density Lipoprotein 40 mg/dL; Potassium 4.2 mmol/L (3.5-5.1); Sodium Level 140 mmol/L (136-145); Triglycerides 119 mg/dL; Very Low Density Lipoprotein 24 mg/dL (5-40)
== END | disposition home or self-care (01) ==
LOC: LAB 07:53
PROVIDERS: PCP Family Medicine; Visit Provider Family Medicine
DX: Z00.00 Encounter for general adult medical examination without abnormal findings (principal)
CPT/HCPCS: 36415; 80048; 80061; 82306

== ENCOUNTER → 2023-11-22 | Outpatient (CLI) | payer OTHER, SELFPAY ==
[2023-11-22 10:15] LABS: Anion Gap 4 (5-15); BUN 10 mg/dL (7-18); BUN/Creat Ratio 18.3 RATIO (10-20); Calcium,Total 8.9 mg/dL (8.5-10.1); Chloride 105 mmol/L (98-107); Cholesterol 130 mg/dL (200); Creatinine, Serum 0.55 mg/dL (0.55-1.02); EST Glomerular Filtration Rate 136 mL/min (>60); Est Glom Filt Rate - Afr Amer 165 mL/min (>60); Glucose 83 mg/dL (74-106); High Density Lipoprotein 50 mg/dL; Potassium 3.9 mmol/L (3.5-5.1); Sodium Level 135 mmol/L (136-145); Triglycerides 86 mg/dL; Very Low Density Lipoprotein 17 mg/dL (5-40)
== END | disposition home or self-care (01) ==
PROVIDERS: PCP Family Medicine; Referring Provider Nurse Practitioner Family; Visit Provider Nurse Practitioner Family
DX: Z13.220 Encounter for screening for lipoid disorders (principal); Z13.1 Encounter for screening for diabetes mellitus
CPT/HCPCS: 36415; 80048; 80061

== ENCOUNTER 2024-06-21 19:29 | Inpatient (IN) | payer OTHER, SELFPAY ==
[2024-06-21] VITALS (22 sets, daily range): BP systolic 114–130; BP diastolic 58–95; PULSE 50–124; RESP 14–16; TEMP 36.3; O2SAT 100; BMI 29.0
[2024-06-21 19:53] LABS: Absolute Lymphocyte Count 1.83 X10^3/uL (0.83-4.51); Absolute Neutrophil Count 9.5 X10^3/uL (2.0-7.7); Basophil# 0.04 X10^3/uL; Basophil% 0.3 % (0-1); Eosinophil# 0.07 X10^3/uL; Eosinophils% 0.6 % (0-5); Hematocrit 34.9 % (37-47); Hemoglobin 11.6 g/dL (12.0-15.0); Lymphocyte # 1.83 X10^3/ul (0.83-4.51); Mean Corp Hgb Conc 33.2 g/dL (32-36); Mean Corpuscular Hgb 28.4 pg (27.0-32.0); Mean Corpuscular Volume 85.5 fL (81-99); Mean Platelet Vol. 11.5 fl (6.2-12.0); Monocyte# 0.74 X10^3/uL; Monocyte% 6.1 % (0-10); NRBC Flagged by Analyzer 0 % (0-5); Neutrophil # 9.49 X10^3/uL (2.7-7.7); Neutrophil % 77.5 % (47-70); Platelet Count 186 K/mm3 (150-450); RBC Distribution Width CV 12.8 % (11.6-14.6); RBC Distribution Width SD 39.3 fl (35.1-43.9); Red Blood Count 4.08 M/mm3 (4.2-5.4); White Blood Count 12.2 K/mm3 (4.4-11.0)
[2024-06-21] MEDS: Ondansetron 4 MG/2 ML Vial IV (19:53)
[2024-06-21] MEDS: Lactated Ringers 1,000 ML 999 ML IV (19:53)
[2024-06-21] MEDS: Oxytocin 10 UNITS/ML Vial IM (20:08)
[2024-06-21] MEDS: Oxytocin 15 Units/NS 250ml 15 UNITS/250 ML IV.SOLN 83 UNITS IV (20:10)
[2024-06-21] MEDS: Lidocaine 1% (20 ml mdv) 20 ML Vial INFILT (20:15)
--- NOTE | 2024-06-21 20:25 | OB.VAGDELI_ITS ---
Assessment & Plan (1) (spontaneous vaginal delivery): Maternal Data Information Final TY: 07/09/24 Gestational age: 37 3/7 Vaginal Delivery Maternal Presentation Maternal Presentation: Active Labor Vaginal Delivery Information Procedure Performed: Spontaneous Vaginal Delivery Surgeon/Practitioner: Emily Rios Date of Procedure: 06/21/24 Pre-Procedure Diagnosis: labor Post-Procedure Diagnosis: same Type of anesthesia: Local with 1% Lidocaine (7 cc) Estimated Blood Loss: 300 Fluids Replaced: 0 Time of Delivery: 20:06 Findings Description of procedure: A vigorous male was delivered DIMITRY over first-degree perineal laceration. The remainder the was delivered with maternal pushing and gentle traction only in less than 15 seconds. The Pitocin infusion was initiated for active management of the third stage. The cord was clamped and cut after 2 minutes. The infant was attended to by the waiting nursing staff. The placenta was delivered spontaneously and intact. The cervix and vagina were intact. The small laceration was repaired with a single 3-0 Vicryl Rapide [id number] suture. Sponge and needle counts were correct. A vaginal sweep was completed by me. Presentation: DIMITRY Amniotic Membrane Rupture Type: Spontaneous Amniotic Fluid Description: Clear Placental Delivery Description: Spontaneous Placenta Disposition: [facility] Specimen collected: No Cord Vessel Description: 3 Vessels Cord Entanglement: None A Gender: Male (Doug) (1 minute): 8 (5 minute): 9 Delayed Cord Clamping: Yes Clinical Trial Manager head of partner development: No Post Vaginal Deli Medications given after delivery: IV Pitocin and IM Pitocin Episiotomy Description: None Laceration: 1st degree Complication Complications: No
--- NOTE | 2024-06-21 20:27 | HP.PCM.OB_ITS ---
HPI - General General Date of Admission: 06/21/24 Date of Service: 06/21/24 Chief Complaint: ctxs HPI Narrative RACHEL BURGOS, is a 33 F who presents in labor at term. Maternal Data Information Final TY: 07/09/24 Gestational age: 37 3/7 [facility] Medical History (Updated 06/21/24 @ 20:[address] Emily Rios MD) and not yet delivered Environmental allergies Home Medications ?Medication ?Instructions ?Recorded ?Last Taken ?Type prenat.vits,emely,upq-qtye-anlwa 1 tab PO DAILY Check with primary 10/02/18 04/27/20 09:00 History doctor aspirin 81 mg capsule 81 mg PO QDAY 06/06/24 Unknown History Allergy/AdvReac Type Severity Reaction Status Date / Time Penicillins (PCN) Allergy Hives Verified 06/19/24 11:38 Family History Other Respiratory abnormalities Surgical History History of bunionectomy Social History Smoking Status: Never smoker alcohol intake: never substance use type: does not use what type of physical activity do you participate in: walking and aerobics frequency: 3-4 times per week History Elective abortions Hx Para 1 Spontaneous abortions Hx # Term Pregnancies Ectopic pregnancies Hx # Pregnancies Multiple births # of living children ROS Constitutional Constitutional: Denies fatigue, fever(s) or malaise Eyes Eyes: Denies change in vision ENT HEENT: Denies dizziness or headache(s) Cardiovascular Cardiovascular: Denies chest pain, dyspnea or lightheadedness Respiratory/Chest Respiratory/Chest: Denies cough or dyspnea Gastrointestinal Gastrointestinal: Denies change in bowel habits Genitourinary Genitourinary: Denies burning urination or genital lesions Integumentary Integumentary: Denies rash Neurologic Neurologic: Denies confusion, dizziness, headache(s), numbness or weakness Vital Signs Vital Signs Vital Signs: 06/21/24 19:48 06/21/24 19:48 06/21/24 19:48 Temperature 97.3 F L Temperature Source Temporal Pulse Rate Respiratory Rate 14 Blood Pressure BP Systolic BP Diastolic Pulse Ox 06/21/24 19:49 06/21/24 19:49 06/21/24 20:20 Temperature Temperature Source Pulse Rate 50 L Respiratory Rate Blood Pressure 124/95 H 124/69 H BP Systolic 124 124 BP Diastolic 95 69 Pulse Ox 06/21/24 20:20 06/21/24 20:20 06/21/24 20:25 Temperature Temperature Source Pulse Rate 124 H 118 H Respiratory Rate Blood Pressure BP Systolic BP Diastolic Pulse Ox 100 06/21/24 20:25 Temperature Temperature Source Pulse Rate Respiratory Rate Blood Pressure BP Systolic BP Diastolic Pulse Ox 100 Physical Exam Const alert and no apparent distress General Appearance: cooperative HEENT normocephalic Resp normal respiratory effort Cardio regular rate GI soft to palpation GI Narrative: gravid, nontender, appropriate for gestational age Extremity no calf tenderness General Extremity: edema Skin no wounds Rashes: No rashes noted Psych activity/motor behavior normal Labs Labs Labs: Blood Type A POSITIVE Antibody Screen NEGATIVE Hct 34.9 % (37-47) L Hgb 11.6 g/dL (12.0-15.0) L Syphilis Total Ab Pending VZV IgG Antibody 1.62 index (Immune >1.09) Rubella IgG Antibody 143.5 IU/mL Hep Bs Antigen Negative (Negative) Hepatitis C Ab (EIA) <0.1 s/co ratio (0.0-0.9) HIV 1&2 Antibody Non-Reactive (Nonreactive) Glucose 1 Hr 50 gm 108 mg/dL (70-140) Rhogam given: No Assessment & Plan (1) 37 weeks gestation of : PLAN: 37-week multigravida patient in spontaneous labor. Estimated weight is less than 4500 g and pelvis clinically adequate to expect vaginal delivery. May have routine pain control measures as time allows and as indicated.
[2024-06-21] MEDS: Ketorolac 30 MG/ML Syringe IV (20:36)
[2024-06-21 20:42] LABS: Syphilis Antibodies Non-reactive
[2024-06-21] MEDS: Acetaminophen 500 MG Tablet 1000 MG PO (22:51)
[2024-06-22] MEDS: 0.9% Saline Lock 10 ML Syringe IV (00:20)
[2024-06-22 02:00] VITALS: BP 109/65; PULSE 94; RESP 16; TEMP 36.6; O2SAT 97
[2024-06-22 06:45] VITALS: BP 111/77; PULSE 115; RESP 16; TEMP 36.8; O2SAT 96
[2024-06-22] MEDS: Ibuprofen 600 MG Tablet PO ×2 (07:43→20:45)
--- NOTE | 2024-06-22 10:01 | PCM.PN.OB ---
Subjective Subjective Denies complaints Objective Data Objective Data Vital Signs: Vital Signs Temp Pulse Resp BP Pulse Ox O2 Del Method 98.2 F 115 H 16 111/77 96 Room Air 06/22/24 06:45 06/22/24 06:45 06/22/24 06:45 06/22/24 06:45 06/22/24 06:45 06/22/24 06:45 Oxygen Delivery Method Room Air Weight: 180 lb 2 oz Body Mass Index (BMI) 29.0 Intake & Output: Intake and Output for Last 24 Hours 06/20/24 06/21/24 06/22/24 23:59 23:59 23:59 Intake Total 216.45 / 216.45 250 / 250 Output Total 300 / 300 Balance -83.55 / -83.55 250 / 250 Lab / Micro Data 06/21/24 19:40 Labs: Laboratory Results - last 24 hr 06/21/24 19:40: WBC 12.2 H, RBC 4.08 L, Hgb 11.6 L, Hct 34.9 L, MCV 85.5, MCH 28.4, MCHC 33.2, RDW Std Deviation 39.3, RDW Coeff of Keron 12.8, Plt Count 186, MPV 11.5, Immature Gran % (Auto) 0.500, Neut % (Auto) 77.5 H, Lymph % (Auto) 15.0 L, [place] % (Auto) 6.1, Eos % (Auto) 0.6, Baso % (Auto) 0.3, Absolute Neuts (auto) 9.5 H, Absolute Lymphs (auto) 1.83, Nucleated RBC % 0, Syphilis Total Ab Non-reactive, Blood Type A POSITIVE, Antibody Screen NEGATIVE Physical Exam Const alert, oriented x3 and no apparent distress HEENT normocephalic GI soft to palpation, non-tender and non-distended GI Narrative: fundus firm, mid & below umbilicus Extremity normal to inspection and no calf tenderness Assessment & Plan (1) (spontaneous vaginal delivery): COMMENT: PPD#1 PLAN: Plan Routine PP care
[2024-06-22 10:03] VITALS: BP 105/74; PULSE 116; RESP 16; TEMP 36.8
[2024-06-22 13:05] VITALS: BP 104/67; PULSE 99; RESP 16; TEMP 36.8; O2SAT 97
[2024-06-22 17:07] VITALS: BP 108/77; PULSE 100; RESP 16; TEMP 36.8; O2SAT 99
[2024-06-22 20:01] VITALS: BP 100/72; PULSE 114; RESP 14; TEMP 36.5; O2SAT 98
[2024-06-23 02:00] VITALS: BP 107/68; PULSE 83; RESP 16; TEMP 36.6; O2SAT 98
[2024-06-23 08:47] VITALS: BP 106/85; PULSE 100; RESP 16; TEMP 36.6; O2SAT 98
--- NOTE | 2024-06-23 09:41 | PCM.PN.OB ---
Subjective Subjective Denies complaints Objective Data Objective Data Vital Signs: Vital Signs Temp Pulse Resp BP Pulse Ox O2 Del Method 97.8 F 100 16 106/85 H 98 Room Air 06/23/24 08:47 06/23/24 08:47 06/23/24 08:47 06/23/24 08:47 06/23/24 08:47 06/23/24 08:47 Oxygen Delivery Method Room Air Weight: 180 lb 2 oz Body Mass Index (BMI) 29.0 Intake & Output: Intake and Output for Last 24 Hours 06/21/24 06/22/24 06/23/24 23:59 23:59 23:59 Intake Total 216.45 / 216.45 250 / 250 Output Total 300 / 300 Balance -83.55 / -83.55 250 / 250 Lab / Micro Data 06/21/24 19:40 Physical Exam Const alert, oriented x3 and no apparent distress HEENT normocephalic GI soft to palpation, non-tender and non-distended GI Narrative: fundus firm, mid & below umbilicus Extremity normal to inspection and no calf tenderness Assessment & Plan (1) (spontaneous vaginal delivery): COMMENT: PPD#2 PLAN: Plan D/c home
--- NOTE | 2024-06-23 09:42 | PCM.DC.SUM ---
Providers Date of Admission: 06/21/24 Primary Care Physician: Dr. Aftab James MD Reason For Visit: R/O LABOR Diagnosis Discharge Diagnosis (1) (spontaneous vaginal delivery): Status: Acute Code(s): O80 - Encounter for full-term uncomplicated delivery Plan D/c home Medications at Discharge Home Medications prenat.vits,emely,sxd-ahku-lwozs 1 tab PO DAILY Check with primary doctor 10/02/18 acetaminophen 500 mg tablet 1,000 mg (2 x 500 mg) PO Q6H PRN PRN Pain 1-10 Or Fever #0 tabs 06/23/24 ibuprofen 600 mg tablet 600 mg PO Q6H PRN PRN Pain Score 1-10 #0 tabs 06/23/24 Hospital Course Operations None Procedures None Summary of Care Provided Minutes Spent on Discharge: 15 Weight / BMI Weight Weight: 180 lb 2 oz Body Mass Index (BMI) 29.0 ABG / Lab / Microbiology Data 06/21/24 19:40 D/C Instructions Discharge Diet: No restrictions Discharge Activity: May Shower May resume sexual activity in: 6 weeks Weight Bearing Status: Weight bearing as tolerated Call your doctor if you observe: Fever of 101 or Higher, Coldness, Increased Pain, Change in Color, Inability to urinate, Inability to have a bowel movement, Using more than 1 pad per hour, Shortness of breath, Dizziness, Fainting spells, Chest pain, Increased palpitations (irregular heartbeat), Calf discomfort and Uncontrolled pain DC O2, CPAP, BIPAP Needs Home O2 Discharge instructions: No Please Follow Up With: Barb Costello MD When: Follow up in 2 and 6 weeks for visits. Meaningful Use Info Meaningful Use Meaningful Use Diagnoses (Choose all that apply): None applicable Ischemic Stroke Statin Dosing Therapy Reference: STATIN DOSE THERAPY REFERENCE: * Patients > 75 years receive moderate or high dose statin therapy. * Patients 75 years or YOUNGER should receive HIGH intensity statin dose unless contraindicated. You will be required to document reason for non-treatment if statin daily dose does not meet guidelines. HIGH DOSE STATIN THERAPY DAILY Atorvastatin > than or = to 40 mg Rosuvastatin > than or = to 20 mg Amlodipine + Atorvastatin > than or = to 2.5/40 mg Ezetimibe + Simvastatin 10/80 mg Simvastatin 80mg Discharge Plan Admission Admit Date/Time: 06/21/24 19:29 Primary Reason for Your Visit: Vaginal delivery Attending Provider: Emily Rios Primary Care Provider: Aftab James Discharge Orders/Prescriptions Prescriptions: New acetaminophen 500 mg Tablet 1,000 mg PO Q6H PRN PRN (Reason: Pain 1-10 Or Fever) Qty: 0 0RF ibuprofen 600 mg Tablet 600 mg PO Q6H PRN PRN (Reason: Pain Score 1-10) Qty: 0 0RF Continued prenat.vits,emely,zkd-xzob-xnfis tablet 1 tab PO DAILY Discontinued aspirin 81 mg capsule 81 mg PO QDAY Referrals / Follow Up: Aftab James MD [Primary Care Provider] - Disposition Disposition (needs filled in before D/C Order can be placed): Home, Self Care
== END 2024-06-23 11:30 | disposition home or self-care (01) | DRG 807 ==
LOC: WP 19:29 → WPOUT 19:33 → WP 19:33
PROVIDERS: Admitting Provider Obstetrics & Gynecology; PCP Family Medicine; Referring Provider Obstetrics & Gynecology; Visit Provider Obstetrics & Gynecology
DX: O70.0 First degree perineal laceration during delivery (principal); Z37.0 Single live birth; Z3A.37 37 weeks gestation of pregnancy; Z79.82 Long term (current) use of aspirin; Z88.0 Allergy status to penicillin
CPT/HCPCS: 59025; 59050; 85025; 86780; 86850; 86900; 86901; 99221; A4216; G0378; J2405

== ENCOUNTER → 2024-09-09 | Outpatient (CLI) | payer OTHER, SELFPAY | END | disposition home or self-care (01) | LOC: LABSPEC 11:08 | PROVIDERS: PCP Family Medicine; Referring Provider Physician Assistant; Visit Provider Physician Assistant | DX: R30.0 Dysuria (principal) | CPT/HCPCS: 87086; 87088; 87186 ==